=== PATIENT | female | born 1940 | race Caucasian/White ===

== ENCOUNTER 2021-03-20 16:03 | Emergency (ER) | payer MEDICARE, OTHER ==
[~2021-03-20] VITALS: Ht 152.4 cm; Wt 63.6 kg
[2021-03-20] MEDS ORDERED: HTN MEDICATION PO (16:34)
[2021-03-20] MEDS ORDERED: LEVO25TA9 PO (16:34)
[2021-03-20] MEDS ORDERED: PRAV40TA4 PO (16:34)
[2021-03-20] MEDS ORDERED: METF-961 PO (16:34)
[2021-03-20] MEDS ORDERED: ACETAMINOPHEN 500 MG TABLET PO ONE (18:15)
[2021-03-20 20:31] VITALS: BP 165/90
== END 2021-03-20 21:23 | disposition home or self-care (01) ==
LOC: EMS 16:03
DX: S09.90XA Unspecified injury of head, initial encounter (principal); E11.9 Type 2 diabetes mellitus without complications; E78.00 Pure hypercholesterolemia, unspecified; I10 Essential (primary) hypertension; Z79.84 Long term (current) use of oral hypoglycemic drugs; W18.09XA Striking against other object with subsequent fall, initial encounter; Y93.89 Activity, other specified; Y92.89 Other specified places as the place of occurrence of the external cause; Y99.8 Other external cause status
CPT/HCPCS: 70450; 70486; 72125; 82962; 99285